=== PATIENT | male | born 1945 | race Caucasian/White ===

== ENCOUNTER 2017-11-27 15:47 | Emergency (ER) | payer OTHER ==
[~2017-11-27] VITALS: Ht 170.2 cm; Wt 104.0 kg
[2017-11-27] MEDS ORDERED: IOHEXOL 350 MG/ML 10 ML VIAL (for RAD DIAG) IVCONTRAST ONE (15:48)
[2017-11-27 16:24] VITALS: BP 124/67; PULSE 123; RESP 16; TEMP 98.7; O2SAT 98
[2017-11-27 17:48] LABS: AUTOMATED NEUTROPHIL # 11.7 TH/MM3 (1.8-7.7); BASOPHIL % 0.2 % (0.0-2.0); EOSINOPHIL % 0.2 % (0.0-4.0); HEMOGLOBIN 14.5 GM/DL (13.0-17.0); LYMPH % 3.3 % (9.0-44.0); LYMPHOCYTE # 0.4 TH/MM3 (1.0-4.8); MEAN CELL VOLUME 90.2 FL (80.0-100.0); MEAN CORPUSCULAR HEMOGLOBIN 31.2 PG (27.0-34.0); MEAN CORPUSCULAR HGB CONC 34.5 % (32.0-36.0); MEAN PLATELET VOLUME 8.7 FL (7.0-11.0); MONO % 4.7 % (0.0-8.0); MONOCYTE # 0.6 TH/MM3 (0-0.9); NEUT % 91.6 % (16.0-70.0); PLATELET COUNT 213 TH/MM3 (150-450); RED BLOOD COUNT 4.65 MIL/MM3 (4.50-5.90); RED CELL DISTRIBUTION WIDTH 13.2 % (11.6-17.2); WHITE BLOOD COUNT 12.8 TH/MM3 (4.0-11.0)
[2017-11-27 18:14] LABS: ALBUMIN 4.1 GM/DL (3.4-5.0); AST (GOT) 19 U/L (15-37); BICARBONATE 22.2 MEQ/L (21.0-32.0); BLOOD UREA NITROGEN 26 MG/DL (7-18); CALCIUM 9.2 MG/DL (8.5-10.1); CHLORIDE 104 MEQ/L (98-107); CREATININE 1.38 MG/DL (0.60-1.30); GLOMERULAR FILTRATION RATE 51 ML/MIN (>89); GLUCOSE,RANDOM 189 MG/DL (74-106); SODIUM (NA) 137 MEQ/L (136-145)
[2017-11-27 18:15] LABS: ALT (GPT) 26 U/L (12-78)
[2017-11-27 18:17] LABS: ALKALINE PHOSPHATASE 60 U/L (45-117); TOTAL BILIRUBIN ADULT 0.5 MG/DL (0.2-1.0); TOTAL PROTEIN 8.5 GM/DL (6.4-8.2)
[2017-11-27] MEDS ORDERED: SODIUM CHLOR 0.9% 1000 ML INJ 1,000 ML IV SCH (18:23)
[2017-11-27] MEDS ORDERED: ONDANSETRON HCL 4 MG/2 ML VIAL IVP ONE (18:30)
[2017-11-27 18:41] LABS: BILIRUBIN, URINE NEG (NEG); BLOOD, URINE NEG (NEG); GLUCOSE,URINE NEG (NEG); KETONE, URINE NEG (NEG); MUCUS URINE FEW /lpf (OCC); NITRITE,URINE NEG (NEG); SQUAMOUS EPITHELIAL CELL URINE <1 /hpf (0-5); URINE COLOR YELLOW (YELLW/STRAW); URINE LEUKOCYTE ESTERASE NEG (NEG)
--- NOTE | 2017-11-27 19:10 | RADRPT ---
EXAM DATE/TIME: 11/27/2017 18:30 [facility] COMPARISON: No previous studies available for comparison. INDICATIONS : Patient complains of right sided chest pain and upper abdominal pain. MEDICAL HISTORY : None. SURGICAL HISTORY : None. ENCOUNTER: Initial ACUITY: 1 day PAIN SCORE: 6/10 LOCATION: Right chest FINDINGS: A single view of the chest demonstrates the lungs to be symmetrically aerated without evidence of mas s, infiltrate or effusion. The cardiomediastinal contours are unremarkable. Osseous structures are intact. CONCLUSION: No acute disease. Anil Ascencio MD FACR on November 27, 2017 at 19:08 Board Certified Radiologist. This report was verified electronically.
[2017-11-27] MEDS ORDERED: METF850T PO (19:11)
[2017-11-27] MEDS ORDERED: METF500T PO (19:11)
[2017-11-27] MEDS ORDERED: COLA100C5 PO (19:11)
[2017-11-27] MEDS ORDERED: DONE5TAB7 PO (19:11)
[2017-11-27] MEDS ORDERED: ASPI81CH7 CHEW (19:11)
[2017-11-27 19:24] VITALS: BP_SYST 100; BP_SYST 96; BP_DIAS 55; BP_DIAS 58; RESP 20
--- NOTE | 2017-11-27 19:59 | PD ---
HPI Chief Complaint: GI Complaint Time Seen by Provider: 18:10 Travel History International Travel<30 days: No Contact w/Intl Traveler<30days: No Traveled to known affect area: No History of Present Illness HPI 72-year-old male presents to the ED for evaluation of multiple complaints. Per patient all symptoms started since yesterday. Per patient his "sick "patient yesterday he was cleaning his new purchased home and there was dust and what appeared to be sand-like material on 1 of the rooms which flew all over him when he was trying to clean it. Per patient ever since then she developed headache as well as congestion and cough. Per patient is has since gone away but during the day he started noticing that he had nausea and vomiting and started vomiting even after eating. Patient is has continued to happen and now he has abdominal pain as well. He also complains of having right-sided chest discomfort that he attributes to "pleurisy". Per patient he also has a headache and pressure-like on the back of his eyes bilaterally. He denies any numbness, tingling, weakness. Denies any history of heart disease. States that the only medical history he has his diabetes and takes metformin for it. He has no other medical issues. Allergies to medication. Per patient the pain currently in his abdomen is 4 out of 10 and gets worse whenever he moves. He is also having left-sided back pain that radiates to the left leg. This is new for him. He apparently was prescribed a muscle relaxant by his doctor for this. He also states that he has been having sensation of his going to pass out whenever he stands up. He has never had this before. PFSH Past Medical History Diabetes: Yes Patient Takes Glucophage: No Diminished Hearing: Yes (hearing aids) Tetanus Vaccination: < 5 Years Influenza Vaccination: Yes Family History Family Hypercholesterolemia: Yes Social History Alcohol Use: No Tobacco Use: No Substance Use: No Allergies-Medications (Allergen,Severity, Reaction): Coded Allergies: No Known Allergies (Unverified , 11/27/17) Reported Meds & Prescriptions Reported Meds & Active Scripts Active Zofran Odt (Ondansetron Odt) 4 Mg Tab 4 Mg SL Q6HR PRN Reported Donepezil 5 Mg Tab 5 Mg PO HS Colace (Docusate Sodium) 100 Mg Capsule 100 Mg PO HS Aspirin Children's (Aspirin) 81 Mg Chew 81 Mg CHEW DAILY Metformin (Metformin HCl) 500 Mg Tab 500 Mg PO DAILY With a meal Metformin (Metformin HCl) 850 Mg Tab 850 Mg PO DAILY With a meal Review of Systems Except as stated in HPI: all other systems reviewed are Neg Physical Exam Narrative GENERAL: SKIN: Warm and dry. HEAD: Atraumatic. Normocephalic. EYES: Pupils equal and round 4 mm reactive to light and accommodation.. No scleral icterus. No injection or drainage. ENT: No nasal bleeding or discharge. Mucous membranes pink and moist. Tongue is midline. No uvula deviation. NECK: Trachea midline. No JVD. CARDIOVASCULAR: Regular rate and rhythm. No murmurs, S3, S4. RESPIRATORY: No accessory muscle use. Clear to auscultation. Breath sounds equal bilaterally. GASTROINTESTINAL: Abdomen soft, tender to palpation on the right upper quadrant as well as the right lower quadrant, nondistended. Hepatic and splenic margins not palpable. MUSCULOSKELETAL: Extremities without clubbing, cyanosis, or edema. No obvious deformities. Full range of motion of the upper and lower extremities bilaterally. 2+ pulses bilaterally. NEUROLOGICAL: Awake and alert. No obvious cranial nerve deficits. Motor grossly within normal limits. Five out of 5 muscle strength in the arms and legs. Normal speech. PSYCHIATRIC: Appropriate mood and affect; insight and judgment normal. Data Data Last Documented VS Vital Signs Date Time Temp Pulse Resp B/P (MAP) Pulse Ox O2 Delivery O2 Flow Rate FiO2 11/27/17 21:38 91 20 114/61 (78) 94 Room Air 11/27/17 16:24 98.7 Orders Orders Complete Blood Count With Diff (11/27/17 16:29) Comprehensive Metabolic Panel (11/27/17 16:29) Urinalysis - C+S If Indicated (11/27/17 16:29) Lipase (11/27/17 18:23) Lactic Acid (11/27/17 18:23) Ct Abd/Pel W Iv Contrast(Rout) (11/27/17 18:23) Iv Access Insert/Monitor (11/27/17 18:23) Ecg Monitoring (11/27/17 18:23) NPO (11/27/17 18:23) Ondansetron Inj (Zofran Inj) (11/27/17 18:30) Sodium Chlor 0.9% 1000 Ml Inj (Ns 1000 M (11/27/17 18:23) Electrocardiogram (11/27/17 18:23) Chest, Single Ap (11/27/17 18:23) Ckmb (Isoenzyme) Profile (11/27/17 18:23) Troponin I (11/27/17 18:23) Oximetry (11/27/17 18:23) Orthostatic Vital Signs (11/27/17 18:23) Ct Brain W/O Iv Contrast(Rout) (11/27/17 ) CKMB (11/27/17 18:46) CKMB% (11/27/17 18:46) Sodium Chlor 0.9% 1000 Ml Inj (Ns 1000 M (11/27/17 20:30) Iohexol 350 Inj (Omnipaque 350 Inj) (11/27/17 15:48) Lactic Acid (11/27/17 21:26) Acetaminophen (Tylenol) (11/27/17 22:30) Ed Discharge Order (11/27/17 22:32) Labs Laboratory Tests Test 11/27/17 16:55 11/27/17 18:04 11/27/17 18:46 11/27/17 21:30 White Blood Count 12.8 TH/MM3 Red Blood Count 4.65 MIL/MM3 Hemoglobin 14.5 GM/DL Hematocrit 42.0 % Mean Corpuscular Volume 90.2 FL Mean Corpuscular Hemoglobin 31.2 PG Mean Corpuscular Hemoglobin Concent 34.5 % Red Cell Distribution Width 13.2 % Platelet Count 213 TH/MM3 Mean Platelet Volume 8.7 FL Neutrophils (%) (Auto) 91.6 % Lymphocytes (%) (Auto) 3.3 % Monocytes (%) (Auto) 4.7 % Eosinophils (%) (Auto) 0.2 % Basophils (%) (Auto) 0.2 % Neutrophils # (Auto) 11.7 TH/MM3 Lymphocytes # (Auto) 0.4 TH/MM3 Monocytes # (Auto) 0.6 TH/MM3 Eosinophils # (Auto) 0.0 TH/MM3 Basophils # (Auto) 0.0 TH/MM3 CBC Comment DIFF FINAL Differential Comment Blood Urea Nitrogen 26 MG/DL Creatinine 1.38 MG/DL Random Glucose 189 MG/DL Total Protein 8.5 GM/DL Albumin 4.1 GM/DL Calcium Level 9.2 MG/DL Alkaline Phosphatase 60 U/L Aspartate Amino Transf (AST/SGOT) 19 U/L Alanine Aminotransferase (ALT/SGPT) 26 U/L Total Bilirubin 0.5 MG/DL Sodium Level 137 MEQ/L Potassium Level 4.3 MEQ/L Chloride Level 104 MEQ/L Carbon Dioxide Level 22.2 MEQ/L Anion Gap 11 MEQ/L Estimat Glomerular Filtration Rate 51 ML/MIN Urine Color YELLOW Urine Turbidity CLEAR Urine pH 5.0 Urine Specific Bard 1.031 Urine Protein TRACE mg/dL Urine Glucose (UA) NEG mg/dL Urine Ketones NEG mg/dL Urine Occult Blood NEG Urine Nitrite NEG Urine Bilirubin NEG Urine Urobilinogen LESS THAN 2.0 MG/DL Urine Leukocyte Esterase NEG Urine RBC LESS THAN 1 /hpf Urine WBC LESS THAN 1 /hpf Urine Squamous Epithelial Cells <1 /hpf Urine Mucus FEW /lpf Microscopic Urinalysis Comment CULT NOT INDICATED Lactic Acid Level 2.7 mmol/L 1.4 mmol/L Total Creatine Kinase 128 U/L Creatine Kinase MB 0.7 NG/ML Troponin I LESS THAN 0.02 NG/ML Lipase 259 U/L MDM Medical Decision Making Medical Screen Exam Complete: Yes Emergency Medical Condition: Yes Medical Record Reviewed: Yes Interpretation(s) CBC & BMP Diagram 11/27/17 16:55 Total Protein 8.5 H, Albumin 4.1, Calcium Level 9.2, Alkaline Phosphatase 60, Aspartate Amino Transf (AST/SGOT) 19, Alanine Aminotransferase (ALT/SGPT) 26, Total Bilirubin 0.5 troponin and CKMB negative Last Impressions Chest X-Ray 11/27/171822 Signed Impressions: Service Date/Time: Monday, November 27, 2017 18:30 - CONCLUSION: No acute disease. Anil Ascencio MD FACR Abdomen/Pelvis CT 11/27/171822 Signed Impressions: Service Date/Time: Monday, November 27, 2017 19:54 - CONCLUSION: Nonspecific bowel gas pattern Nonobstructing right renal stone Do not see inflammatory changes in the abdomen There is no hernia. Anil Ascencio MD FACR Head CT 11/27/17 0000 Signed Impressions: Service Date/Time: Monday, November 27, 2017 19:51 - CONCLUSION: Negative for an acute process Anil Ascencio MD FACR EKG shows sinus rhythm with no sign of acute ischemia or arrythmia read by me and attending. lactic acid of 2.7, now 1.4 Differential Diagnosis Chest pain versus typical chest pain versus ACS versus syncope versus presyncope versus acute abdomen versus appendicitis versus gallbladder disease versus pancreatitis versus dehydration versus nausea and vomiting versus sepsis Narrative Course 72-year-old male that presents to the ED for evaluation of multiple complaints. Labs and imaging are ordered. Patient was found to be hypotensive as well as tachycardic on initial evaluation. Unclear as to this reason but possibly from dehydration. Labs and imaging showed elevated lactic acid otherwise unremarkable exam. Patient does have improvement of symptoms with fluids. Patient feels that his nausea is improved. Likely this is gastroenteritis. Dehydration noted. Patient was given a bolus of fluid. Lactic acid was rechecked and has improved. I spoke in length with my attending Dr. Colon who agrees that this is likely the hydration. Will treat outpatient per my attending's recommendation. Patient will get a prescription for Zofran. Patient was told to follow closely with PCP. See ED if any worsening symptoms. Diagnosis Primary Impression: Nausea & vomiting Qualified Codes: R11.2 - Nausea with vomiting, unspecified Additional Impression: Dehydration Patient Instructions: General Instructions Additional Instructions: Take medication as prescribed. Drink plenty of fluids. Liquid diet until better. Follow-up with PCP. See ED if worsening symptoms. Med/Other Pt SpecificInfo: Prescription(s) given Scripts Ondansetron Odt (Zofran Odt) 4 Mg Tab 4 MG SL Q6HR Y for Nausea/Vomiting, #20 TAB 0 Refills Prov: Braeden Colon MD 11/27/17 Disposition: 01 DISCHARGE HOME Condition: Stable Donald Kapoor Nov 27, 2017 19:59
[2017-11-27 20:14] LABS: TROPONIN I LESS THAN 0.02 NG/ML (0.02-0.05)
[2017-11-27] MEDS ORDERED: SODIUM CHLOR 0.9% 1000 ML INJ 1,000 ML IV ONE (20:30)
--- NOTE | 2017-11-27 21:01 | RADRPT ---
EXAM DATE/TIME: 11/27/2017 19:51 [facility] COMPARISON: No previous studies available for comparison. INDICATIONS : Cephalgia RADIATION DOSE: 56.35 CTDIvol (mGy) MEDICAL HISTORY : Diabetes SURGICAL HISTORY : Orthopedic ENCOUNTER: Initial ACUITY: 1 day PAIN SCALE: 5/10 LOCATION: cranial TECHNIQUE: Multiple contiguous axial images were obtained of the head. Using automated exposure control and adj ustment of the mA and/or kV according to patient size, radiation dose was kept as low as reasonably a chievable to obtain optimal diagnostic quality images. DICOM format image data is available electro nically for review and comparison. FINDINGS: CEREBRUM: The ventricles are normal for age. No evidence of midline shift, mass lesion, hemorrhage or acute in farction. No extra-axial fluid collections are seen. POSTERIOR FOSSA: The cerebellum and brainstem are intact. The 4th ventricle is midline. The cerebellopontine angle i s unremarkable. EXTRACRANIAL: The visualized portion of the orbits is intact. SKULL: The calvaria is intact. No evidence of skull fracture. CONCLUSION: Negative for an acute process Anil Ascencio MD FACR on November 27, 2017 at 20:58 Board Certified Radiologist. This report was verified electronically.
--- NOTE | 2017-11-27 21:06 | RADRPT ---
EXAM DATE/TIME: 11/27/2017 19:54 [facility] COMPARISON: No previous studies available for comparison. INDICATIONS : Vomiting IV CONTRAST: 71 cc Omnipaque 350 (iohexol) IV ORAL CONTRAST: No oral contrast ingested. RADIATION DOSE: 17.27 CTDIvol (mGy) MEDICAL HISTORY : Diabetes SURGICAL HISTORY : Orthopedic ENCOUNTER: Initial ACUITY: 1 day PAIN SCALE: 5/10 LOCATION: Abdomen TECHNIQUE: Volumetric scanning of the abdomen and pelvis was performed. Using automated exposure control and adjustment of the mA and/or kV according to patient size, radiation dose was kept as low as reasonably achievable to obtain optimal diagnostic quality images. DICOM format image data is av ailable electronically for review and comparison. FINDINGS: The lower lungs are clear. Moderate coronary calcifications are noted Mild fatty replacement of the liver Spleen and pancreas unremarkable Adrenal glands appear normal 8 mm nonobstructing right renal stone Normal left kidney No ascites or adenopathy Normal bowel gas pattern No abdominal wall hernia Pelvic contents unremarkable without. Review of bone windows reveals only degenerative changes. CONCLUSION: Nonspecific bowel gas pattern Nonobstructing right renal stone Do not see inflammatory changes in the abdomen There is no hernia. Anil Ascencio MD FACR on November 27, 2017 at 21:01 Board Certified Radiologist. This report was verified electronically.
[2017-11-27 21:38] VITALS: BP 114/61; PULSE 91; RESP 20; O2SAT 94
[2017-11-27] MEDS ORDERED: ACETAMINOPHEN 325 MG TAB PO ONE (22:30)
[2017-11-27] MEDS ORDERED: ZOFR4TAB3 SL (22:31)
[2017-11-27 22:57] VITALS: BP 110/63
--- NOTE | 2017-11-28 13:44 | EKG ---
Date Performed: 11/27/2017 Time Performed: 19:38:52 PTAGE: 72 years EKG: Sinus rhythm WITH FIRST DEGREE AV BLOCK LOW QRS VOLTAGE IN PRECORDIAL LEADS POSSIBLE RIGHT VENTRICULAR CONDUCTION DELAY INFERIOR MYOCARDIAL INFARCTION ABNORMAL ECG NO PREVIOUS TRACING DOCTOR: Betty Camarena Interpretating Date/Time 11/28/2017 13:40:15
== END 2017-11-28 06:34 | disposition home or self-care (01) ==
LOC: NEPE 15:47
DX: R11.2 Nausea with vomiting, unspecified (principal); E86.0 Dehydration; R07.89 Other chest pain; E11.9 Type 2 diabetes mellitus without complications; Z79.84 Long term (current) use of oral hypoglycemic drugs
CPT/HCPCS: 70450; 71045; 74177; 80053; 81001; 82550; 82552; 83605; 83690; 84484; 85025; 93005; 96361; 96374; 99285; J2405; J7030; Q9967